=== PATIENT | female | born 1970 | race Caucasian/White ===

== ENCOUNTER → 2018-12-11 | Outpatient (CLI) | payer OTHER ==
--- NOTE | 2018-12-11 19:53 | RADIOLOGY REPORT (SQ) ---
EXAM DESCRIPTION: FEMUR LEFT COMPLETED DATE/TIME: 12/11/2018 7:05 pm REASON FOR STUDY: M89.9 DISORDER OF BONE, UNSPECIFIED M89.9 DISORDER OF BONE, UNSPECIFIED COMPARISON: None. NUMBER OF VIEWS: Two views. TECHNIQUE: Two radiographic images acquired of the left femur to include hip and knee in at least on e projection. LIMITATIONS: None. FINDINGS: MINERALIZATION: Normal. BONES: No acute fracture. No worrisome bone lesions. SOFT TISSUES: No obvious swelling or foreign body. OTHER: No other significant finding. IMPRESSION: NEGATIVE STUDY OF THE LEFT FEMUR. NO RADIOGRAPHIC EVIDENCE OF ACUTE INJURY. TECHNICAL DOCUMENTATION: JOB ID: [id number] [employer]- All Rights Reserved Reading location - IP/workstation name: [email or web address]
--- NOTE | 2018-12-12 09:37 | RADIOLOGY REPORT (SQ) ---
EXAM DESCRIPTION: MRI LT LOWER EXTREMITY COMBO COMPLETED DATE/TIME: 12/11/2018 8:59 pm REASON FOR STUDY: M89.9 DISORDER OF BONE, UNSPECIFIED M89.9 DISORDER OF BONE, UNSPECIFIED COMPARISON: Left femur films 12/11/2018 TECHNIQUE: Multiplanar fat and fluid sensitive sequences precontrast including T1, T2 fat saturated or STIR. Post contrast T1 fat saturated sequences after IV gadolinium administration. CONTRAST TYPE AND DOSE: 10 mL Dotarem. RENAL FUNCTION: None required. The patient is less than 50 years old. LIMITATIONS: None. FINDINGS: MRI of the bony pelvis and left proximal femur was performed without and with contrast. In the left proximal femoral metaphysis, an intramedullary lesion is present measuring about 6 cm in greatest craniocaudad extent. No endosteal scalloping or erosion of the inner table bony cortex. Ma rrow signal in this endomedullary lesion is heterogeneously bright on T2 and dark on T1 with spotty c ontrast enhancement along its inferior aspect. Accompanying plain films today demonstrate no calcifi ed chondroid matrix. This could represent a chondroid lesion such as an enchondroma. Low grade sukumar droid tumor could not entirely be excluded. Bone infarct is also possible. Consider follow-up three -phase bone scan for further evaluation. Images of the left hip demonstrate subcortical cysts in the anterior acetabular rim, and the anterior edge of the superior and inferior femoral head likely related to mild osteoarthritis. Acetabular la liza on the left is slightly irregular without paralabral cyst. No left hip joint effusion or iliops oas bursa fluid. The trochanteric bursa and gluteal attachments are unremarkable. Large field of view right hip images are unremarkable. Remainder of the bony pelvis otherwise unrema rkable. 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 Three-phase bone scan of the pelvis is recommended for followup. TECHNICAL DOCUMENTATION: JOB ID: [id number] [employer]- All Rights Reserved Reading location - IP/workstation name: [email or web address]
== END ==
LOC: RAD 20:11
PROVIDERS: ATTEND Physician Assistant
DX: M89.9 Disorder of bone, unspecified (principal)

== ENCOUNTER → 2019-01-12 | Outpatient (CLI) | payer OTHER ==
--- NOTE | 2019-01-12 15:06 | RADIOLOGY REPORT (SQ) ---
EXAM DESCRIPTION: NM 3 PHASE BONE SCAN COMPLETED DATE/TIME: 01/12/2019 12:01 pm REASON FOR STUDY: BENIGN NEOPLASM OF LONG BONES OF LEFT LOWER LIMB (D16.22) D16.22 BENIGN NEOPLASM OF LONG BONES OF LEFT LOWER LIMB COMPARISON: MRI 12/11/2018 plain radiograph 12/11/2018 RADIONUCLIDE AND DOSE: 20.8 millicuries Tc99m HDP. The route of agent administration: Intravenous. ADDITIONAL DRUGS AND DOSES: None. TECHNIQUE: Following injection of the radiopharmaceutical, serial blood flow images acquired. Equil ibrium blood pool images then acquired. Routine delayed images at 3 hour acquired of the areas of cl inical concern with additional focused images as needed. AREA OF INTEREST: Left femur LIMITATIONS: None. FINDINGS: VASCULAR FLOW IMAGES: No asymmetry or focal areas of hyperemia. BLOOD POOL IMAGES: No asymmetry or focal areas of soft-tissue hyper-perfusion. BONES: Normal visualization without areas of photopenia or increased bony uptake of radiopharmaceutic al. KIDNEYS: Kidneys not imaged. OTHER: No other significant finding. IMPRESSION: NORMAL 3 PHASE BONE SCAN. COMMENT: Quality measure 147: Current bone scan is compared with any available plain radiographs, p rior bone scans, and CT/MRI. TECHNICAL DOCUMENTATION: JOB ID: [id number] [employer]- All Rights Reserved Reading location - IP/workstation name: [email or web address]
== END ==
LOC: RAD 07:50
PROVIDERS: ATTEND Physician Assistant
DX: D16.22 Benign neoplasm of long bones of left lower limb (principal)
CPT/HCPCS: 78315; A9561; Q9969